=== PATIENT | male | born 1965 | race Two or more races ===

== ENCOUNTER 2020-12-28 10:31 | Day surgery (SDC) | payer OTHER ==
[~2020-12-28 10:31] MED LIST: CLONAZEPAM2 MG PO; COLCHICINE0.6 MG PO; CRESTOR5 MG PO; GLIMEPIRIDE1 MG PO; HORIZANT300 MG PO; PRILOSEC OTC20 MG PO; TOPROL XL100 M1 PO; ZETIA10 MG PO
[2020-12-28] MEDS ORDERED: COLACE100 MG PO (16:21)
[2020-12-28] MEDS ORDERED: PERCOCET 5-3251 EACH PO (16:21)
[2020-12-28] MEDS ORDERED: NEURONTIN300 MG PO (18:19)
== END 2020-12-28 21:10 | disposition home or self-care (01) ==
LOC: CIR.AMB 10:31 → EDBD 11:45 → CIR.AMB 15:00
PROVIDERS: ATTEND Surgery
DX: K64.8 Other hemorrhoids (principal); Z20.822 Contact with and (suspected) exposure to COVID-19

== ENCOUNTER 2022-05-02 05:29 | Day surgery (SDC) | payer OTHER ==
[~2022-05-02] VITALS: Ht 167.6 cm; Wt 117.9 kg
[~2022-05-02 05:29] MED LIST changes: +COLACE100 MG PO; +LIPITOR20 MG PO; +NEURONTIN300 MG PO; +PERCOCET 5-3251 EACH PO
[2022-05-02] MEDS ORDERED: COLACE100 MG PO (09:32)
[2022-05-02] MEDS ORDERED: TRAM1TAB98 PO (09:45)
== END 2022-05-02 13:50 | disposition home or self-care (01) ==
LOC: CIR.AMB 05:29
PROVIDERS: ATTEND Surgery
DX: K60.3 Anal fistula (principal); K62.89 Other specified diseases of anus and rectum; K62.5 Hemorrhage of anus and rectum; K64.2 Third degree hemorrhoids; Z88.0 Allergy status to penicillin; Z88.6 Allergy status to analgesic agent; F17.210 Nicotine dependence, cigarettes, uncomplicated; D64.9 Anemia, unspecified; E66.09 Other obesity due to excess calories; E11.9 Type 2 diabetes mellitus without complications; Z79.84 Long term (current) use of oral hypoglycemic drugs; Z20.822 Contact with and (suspected) exposure to COVID-19

== ENCOUNTER 2022-08-29 06:30 | Day surgery (SDC) | payer OTHER ==
[~2022-08-29] VITALS: Ht 167.6 cm; Wt 158.8 kg
[~2022-08-29 06:30] MED LIST changes: +TRAM1TAB98 PO
[2022-08-29] MEDS ORDERED: TRAM1TAB98 PO (11:42)
[2022-08-29] MEDS ORDERED: COLACE100 MG PO (11:42)
[2022-08-29] MEDS ORDERED: NEURONTIN300 MG PO (11:42)
== END 2022-08-29 17:20 | disposition home or self-care (01) ==
LOC: CIR.AMB 06:30
PROVIDERS: ATTEND Surgery
DX: K60.3 Anal fistula (principal); K62.89 Other specified diseases of anus and rectum; K57.30 Diverticulosis of large intestine without perforation or abscess without bleeding; K62.5 Hemorrhage of anus and rectum; K64.2 Third degree hemorrhoids; I10 Essential (primary) hypertension; Z20.822 Contact with and (suspected) exposure to COVID-19; Z88.6 Allergy status to analgesic agent; Z88.0 Allergy status to penicillin; Z88.1 Allergy status to other antibiotic agents